=== PATIENT | female | born 1990 | race Caucasian/White ===

== ENCOUNTER 2022-05-27 12:24 | Emergency (ER) | payer OTHER ==
[~2022-05-27] VITALS: Ht 162.5 cm; Wt 83.9 kg
[2022-05-27] MEDS ORDERED: REGLAN10 M1 PO (16:56)
== END 2022-05-27 17:30 | disposition home or self-care (01) ==
LOC: ED 12:24
DX: J10.1 Influenza due to other identified influenza virus with other respiratory manifestations (principal); Z88.8 Allergy status to other drugs, medicaments and biological substances

== ENCOUNTER → 2022-07-10 | Outpatient (CLI) | payer OTHER ==
[~2022-07-10] MED LIST: REGLAN10 M1 PO
[2022-07-10 17:00] LABS: BILIRUBIN Negative (Negative); BLOOD Negative (Negative); CLARITY Clear (Clear); COLOR Yellow (Yellow); GLUCOSE Negative (Negative); KETONE Negative (Negative); LEUKO ESTERASE Trace (Negative); NITRITE Negative (Negative); SPECIFIC GRAVITY 1.025 (1.001-1.030)
[2022-07-10 17:01] LABS: BASO % 0.3 % (0.0-1.0); EOS # 0.1 10*3/uL (0.0-0.4); EOS % 0.6 % (1.0-4.0); HEMATOCRIT 41.3 % (37.0-47.0); LYMPH # 2.9 10*3/uL (1.3-4.4); LYMPH % 23.4 % (27.0-41.0); MEAN CELL VOLUME 83.8 fl (81.0-99.0); MEAN CORPUSCULAR HGB 27.6 pg (27.0-31.0); MEAN CORPUSCULAR HGB CONC 32.9 g/dl (33.0-37.0); MEAN PLATELET VOLUME 9.2 fl (9.6-12.3); MONO # 0.6 10*3/uL (0.1-1.0); MONO % 4.6 % (3.0-9.0); NEUT # 8.6 10*3/uL (2.3-7.9); NEUT % 70.7 % (47.0-73.0); PLATELET COUNT AUTOMATED 319 10*3/uL (130-400); RED BLOOD COUNT 4.93 10*6/uL (4.10-5.10); RED CELL DISTRI WIDTH 13.2 % (0-14.5); RETICULOCYTE % 1.57 % (0.50-2.50); WHITE BLOOD COUNT 12.2 10*3/uL (4.8-10.8)
[2022-07-10 17:17] LABS: RBC 0-2 rbc/hpf (0-2)
[2022-07-10 17:20] LABS: ALKALINE PHOSPHATASE 90 U/L (46-116); BUN 10 mg/dl (9-23); CHLORIDE 103 mmol/L (98-107); CHOLESTEROL 229 mg/dL (<200); GAMMA GLUTAMYL TRANSPEPTIDASE 33 U/L (0-73); LDL CHOLESTEROL 158 mg/dL (9-159); POTASSIUM 3.7 mmol/L (3.4-5.1); SGPT/ALT 60 U/L (10-49); T3 UPTAKE 20.2 % (22.4-36.7); THYROID STIM HORMONE (HS) 1.321 uIU/ml (0.550-4.780); THYROXINE (T4) TOTAL 9.9 ug/dl (4.5-10.9); TOTAL PROTEIN 7.7 gm/dL (6.0-8.0); TRIGLYCERIDES 104 mg/dl (<150)
[2022-07-10 18:20] LABS: VITAMIN D, 25-HYDROXY 14.7 ng/mL (30-100)
[2022-07-10 18:30] LABS: TOTAL CELLS COUNTED 100 #CELLS
[2022-07-10 18:33] LABS: PLATELET SUFFICIENCY NORMAL (NORMAL)
[2022-07-10 18:35] LABS: OVALOCYTES FEW
[2022-07-11 04:06] LABS: TOTAL PROTEIN, SERUM 7.4 g/dL (6.0-8.5)
[2022-07-11 13:06] LABS: A/G RATIO 1.2 (0.7-1.7); ALPHA-1-GLOBULIN 0.2 g/dL (0.0-0.4); ALPHA-2-GLOBULIN 0.9 g/dL (0.4-1.0); BETA GLOBULIN 1.3 g/dL (0.7-1.3); GLOBULIN, TOTAL 3.4 g/dL (2.2-3.9); M-SPIKE Not Observed g/dL (Not Observed)
[2022-07-11 16:07] LABS: ANTI-DSDNA ANTIBODIES <1 IU/mL (0-9)
== END | disposition home or self-care (01) ==
LOC: LAB 16:36
PROVIDERS: ATTEND Family Medicine
DX: E78.5 Hyperlipidemia, unspecified (principal); E55.9 Vitamin D deficiency, unspecified; R79.89 Other specified abnormal findings of blood chemistry; R53.83 Other fatigue; R74.8 Abnormal levels of other serum enzymes; R06.02 Shortness of breath

== ENCOUNTER 2022-09-17 14:34 | Emergency (ER) | payer OTHER ==
[~2022-09-17] VITALS: Ht 162.5 cm; Wt 88.5 kg
[2022-09-17 17:16] LABS: BASO % 0.2 % (0.0-1.0); EOS % 0.1 % (1.0-4.0); HEMATOCRIT 38.9 % (37.0-47.0); LYMPH % 18.6 % (27.0-41.0); MEAN CELL VOLUME 86.3 fl (81.0-99.0); MEAN CORPUSCULAR HGB 28.2 pg (27.0-31.0); MEAN CORPUSCULAR HGB CONC 32.6 g/dl (33.0-37.0); MONO # 0.9 10*3/uL (0.1-1.0); MONO % 5.7 % (3.0-9.0); NEUT # 11.9 10*3/uL (2.3-7.9); PLATELET COUNT AUTOMATED 322 10*3/uL (130-400); RED BLOOD COUNT 4.51 10*6/uL (4.10-5.10); RED CELL DISTRI WIDTH 12.6 % (0-14.5); WHITE BLOOD COUNT 15.8 10*3/uL (4.8-10.8)
[2022-09-17 17:42] LABS: ALKALINE PHOSPHATASE 70 U/L (46-116); BUN 6 mg/dl (9-23); CHLORIDE 100 mmol/L (98-107); LIPASE 37 U/L (12-53); POTASSIUM 3.5 mmol/L (3.4-5.1); SGPT/ALT 9 U/L (10-49); TOTAL PROTEIN 7.5 gm/dL (6.0-8.0)
== END 2022-09-17 20:39 | disposition short-term general hospital (02) ==
LOC: ED 14:34
PROVIDERS: Physician Assistant
DX: O26.891 Other specified pregnancy related conditions, first trimester (principal); O99.341 Other mental disorders complicating pregnancy, first trimester; R10.11 Right upper quadrant pain; O21.9 Vomiting of pregnancy, unspecified; F41.9 Anxiety disorder, unspecified; F32.A Depression, unspecified; Z87.442 Personal history of urinary calculi; Z88.5 Allergy status to narcotic agent; Z3A.08 8 weeks gestation of pregnancy

== ENCOUNTER → 2022-09-22 | Outpatient (CLI) | payer OTHER | END | disposition home or self-care (01) | LOC: US 00:48 | PROVIDERS: ATTEND Family Medicine | DX: K76.0 Fatty (change of) liver, not elsewhere classified (principal); N20.0 Calculus of kidney ==

== ENCOUNTER 2022-10-10 01:43 | Emergency (ER) | payer OTHER ==
[~2022-10-10] VITALS: Ht 162.5 cm; Wt 88.5 kg
[2022-10-10 03:01] LABS: BASO % 0.1 % (0.0-1.0); EOS % 0.1 % (1.0-4.0); HEMATOCRIT 37.6 % (37.0-47.0); LYMPH # 2.4 10*3/uL (1.3-4.4); MEAN CELL VOLUME 85.5 fl (81.0-99.0); MEAN CORPUSCULAR HGB 28.6 pg (27.0-31.0); MEAN CORPUSCULAR HGB CONC 33.5 g/dl (33.0-37.0); MEAN PLATELET VOLUME 9.1 fl (9.6-12.3); MONO # 0.8 10*3/uL (0.1-1.0); MONO % 5.1 % (3.0-9.0); NEUT # 11.5 10*3/uL (2.3-7.9); NEUT % 78.2 % (47.0-73.0); PLATELET COUNT AUTOMATED 330 10*3/uL (130-400); RED CELL DISTRI WIDTH 12.5 % (0-14.5); WHITE BLOOD COUNT 14.7 10*3/uL (4.8-10.8)
[2022-10-10 03:16] LABS: BILIRUBIN Negative (Negative); BLOOD Negative (Negative); CLARITY Clear (Clear); COLOR Yellow (Yellow); GLUCOSE Negative (Negative); KETONE 4+ (Negative); LEUKO ESTERASE Trace (Negative); NITRITE Negative (Negative); SPECIFIC GRAVITY 1.025 (1.001-1.030)
[2022-10-10 03:21] LABS: ALKALINE PHOSPHATASE 59 U/L (46-116); BUN 7 mg/dl (9-23); CHLORIDE 101 mmol/L (98-107); LIPASE 32 U/L (12-53); POTASSIUM 3.8 mmol/L (3.4-5.1); SGPT/ALT 12 U/L (10-49); TOTAL PROTEIN 7.4 gm/dL (6.0-8.0)
[2022-10-10 03:22] LABS: BACTERIA 1+; EPITHELIAL CELLS 21-30; MUCOUS TRACE
[2022-10-10] MEDS ORDERED: MACROBID100 M1 PO (03:44)
[2022-10-10] MEDS ORDERED: DICLEGIS DR 101 EACH PO (03:44)
== END 2022-10-10 04:12 | disposition home or self-care (01) ==
LOC: ED 01:43
PROVIDERS: Emergency Medicine
DX: O21.0 Mild hyperemesis gravidarum (principal); O23.41 Unspecified infection of urinary tract in pregnancy, first trimester; N39.0 Urinary tract infection, site not specified; M25.511 Pain in right shoulder; F41.9 Anxiety disorder, unspecified; F32.A Depression, unspecified; Z87.442 Personal history of urinary calculi; Z88.5 Allergy status to narcotic agent; Z3A.11 11 weeks gestation of pregnancy

== ENCOUNTER → 2022-10-13 | Outpatient (CLI) | payer OTHER ==
[~2022-10-13] MED LIST changes: +DICLEGIS DR 101 EACH PO; +MACROBID100 M1 PO
== END | disposition home or self-care (01) ==
LOC: LAB 15:43
PROVIDERS: ATTEND Specialist
DX: O09.91 Supervision of high risk pregnancy, unspecified, first trimester (principal); O99.340 Other mental disorders complicating pregnancy, unspecified trimester; F32.A Depression, unspecified; Z3A.00 Weeks of gestation of pregnancy not specified